=== PATIENT | female | born 1945 | race Hispanic/Latino ===

== ENCOUNTER 2020-01-08 12:26 | Observation (INO) | payer MEDICARE ==
[~2020-01-08] VITALS: Ht 162.6 cm; Wt 52.4 kg
[2020-01-08 12:51] LABS: BASOPHILS % (AUTO) 0.2 % (0.0-5.0); EOSINOPHILS % (AUTO) 0.3 % (0.0-8.0); HEMATOCRIT 38.1 % (36-48); LYMPHOCYTES % (AUTO) 35.1 % (21.0-51.0); MEAN CORPUSCULAR HEMOGLOBIN 30.8 pg (27.0-33.0); MEAN CORPUSCULAR HGB CONC 33.3 g/dL (32.0-36.0); MEAN CORPUSCULAR VOLUME 92.3 fL (79-99); MONOCYTES % (AUTO) 6.8 % (3.0-13.0); NEUTROPHILS % (AUTO) 57.2 % (40.0-77.0); PLATELET COUNT (AUTO) 300 K/uL (130-400); RED BLOOD CELL COUNT(AUTO) 4.13 MIL/uL (4.00-5.50); RED CELL DISTRIBUTION WIDTH 13.3 % (11.0-15.5); WHITE BLOOD COUNT (AUTO) 9.7 K/uL (4.8-10.8)
[2020-01-08 13:07] LABS: CREATININE 0.9 mg/dL (0.5-1.5); POTASSIUM 3.8 mmol/L (3.5-5.1)
[2020-01-08 13:11] LABS: INR 0.94 (0.85-1.15); PARTIAL THROMBOPLASTIN TIME 24.5 SEC (26.3-35.5); PROTHROMBIN TIME 10.2 SEC (9.6-11.6)
[2020-01-08 13:12] LABS: ALBUMIN 3.6 g/dL (3.5-5.0); BILIRUBIN,TOTAL 0.2 mg/dL (0.2-1.0)
[2020-01-08 13:13] LABS: B-TYPE NATRIURETIC PEPTIDE 28 pg/mL (0-100)
[2020-01-08 13:27] LABS: APPEARANCE,URINE Clear (CLEAR); BILIRUBIN,URINE Negative (NEGATIVE); COLOR,URINE Yellow (YELLOW); GLUCOSE, URINE (UA) Negative (NEGATIVE); KETONES,URINE Negative (NEGATIVE); LEUKOCYTE ESTERASE ,URINE Negative (NEGATIVE); NITRATE,URINE Negative (NEGATIVE); OCCULT BLOOD,URINE Negative (NEGATIVE); PH,URINE 5.5 (5.0-8.0); PROTEIN,URINE Negative (NEGATIVE); UROBILINOGEN,URINE 0.2 mg/dL (0.2-1.0)
[2020-01-08] MEDS ORDERED: TETANUS/DIPHTHERIA TOXOID [ADULT] 0.5 ML VIAL IM ONE (14:42)
[2020-01-08] MEDS ORDERED: ACETAMINOPHEN 325 MG TAB ONE ×2 (14:52→20:21)
[2020-01-08] MEDS ORDERED: HYDRALAZINE HCL 20 MG/ML VIAL IV PRN (17:00)
[2020-01-08] MEDS ORDERED: ACETAMINOPHEN 325 MG TAB PO PRN (17:00)
[2020-01-08] MEDS: PHENYTOIN 100 MG/4 ML UDCUP PO SCH (21:00)
[2020-01-08] MEDS: QUETIAPINE FUMARATE 100 MG TAB PO SCH (21:00)
[2020-01-08] MEDS: INSULIN HUMULIN R 100 UNIT/ML 3ML SQ SCH (21:00)
[2020-01-08] MEDS: HEPARIN SODIUM 5000UNIT/ML 1ML VIAL SQ SCH (21:00)
[2020-01-08] MEDS ORDERED: HEPARIN SODIUM 5000UNIT/ML 1ML VIAL ONE (21:32)
[2020-01-08 22:25] VITALS: BP 155/89
[2020-01-08] MEDS ORDERED: ATOR10TA69 PO (22:52)
[2020-01-08] MEDS ORDERED: PHEN100C9 PO (22:52)
[2020-01-08] MEDS ORDERED: FOLI0.8C PO (22:52)
[2020-01-08] MEDS ORDERED: QUET100T33 PO (22:52)
[2020-01-08] MEDS ORDERED: DONE5TAB33 PO (22:52)
[2020-01-08] MEDS ORDERED: DULO30CA52 PO (22:52)
[2020-01-08] MEDS ORDERED: IBUP-2077 PO (22:52)
[2020-01-08] MEDS ORDERED: METF-444 PO (22:52)
[2020-01-08 23:49] VITALS: BP 128/68
[2020-01-09 04:11] VITALS: BP 124/77
[2020-01-09] MEDS: INSULIN HUMULIN R 100 UNIT/ML 3ML SQ SCH ×4 (05:56→20:47)
[2020-01-09 06:25] LABS: BASOPHILS % (AUTO) 0.3 % (0.0-5.0); EOSINOPHILS % (AUTO) 0.7 % (0.0-8.0); HEMATOCRIT 34.2 % (36-48); LYMPHOCYTES % (AUTO) 36.5 % (21.0-51.0); MEAN CORPUSCULAR HEMOGLOBIN 31.1 pg (27.0-33.0); MEAN CORPUSCULAR HGB CONC 33.6 g/dL (32.0-36.0); MEAN CORPUSCULAR VOLUME 92.4 fL (79-99); MONOCYTES % (AUTO) 9.4 % (3.0-13.0); NEUTROPHILS % (AUTO) 52.7 % (40.0-77.0); PLATELET COUNT (AUTO) 271 K/uL (130-400); RED CELL DISTRIBUTION WIDTH 13.3 % (11.0-15.5); WHITE BLOOD COUNT (AUTO) 7.7 K/uL (4.8-10.8)
[2020-01-09 06:41] LABS: CREATININE 0.9 mg/dL (0.5-1.5); MAGNESIUM 2.1 mg/dL (1.80-2.40); POTASSIUM 4.4 mmol/L (3.5-5.1)
[2020-01-09 08:11] VITALS: BP 137/74
[2020-01-09] MEDS: PHENYTOIN 100 MG/4 ML UDCUP PO SCH ×3 (09:51→20:07)
[2020-01-09] MEDS: HEPARIN SODIUM 5000UNIT/ML 1ML VIAL SQ SCH ×3 (09:52→20:46)
[2020-01-09] MEDS: DULOXETINE HCL 30 MG CAP PO SCH (09:52)
[2020-01-09 11:20] VITALS: BP 136/80
[2020-01-09 16:15] VITALS: BP 125/78
--- NOTE | 2020-01-09 18:17 | NUR ---
D/C PLAN CM spoke to pt regarding d/c planning. Pt lives alone. Has a provider 4 hrs/day that assists in care. Pt with hx of falls. States she does not attend adult day care and not interested in services. Pt denies having home health and states she has not had o/p PT in the past. CM offered short term SNF as possible d/c option. Pt is agreeable to plan. States she will discuss with daughter and follow up as to which facility. Pt reports she has a walker at home. Possible alternate plan will be to home with o/p PT/PT. CM to f/u. Addendum: 01/09/20 at 1820 by HAZEL LESTER Amended: Links added.
[2020-01-09 20:00] VITALS: BP 151/99
--- NOTE | 2020-01-09 20:00 | NUR ---
assessment note patient awake, alert, ox3, no sob, no c/o pain at this time, no seizure activity noted, on fall precautions, teach patient plan of care and expected outcome, reinforce to call nurse when needed, patient verbalizes understanding via teach back, call lo at reach
[2020-01-09] MEDS: QUETIAPINE FUMARATE 100 MG TAB PO SCH (20:07)
[2020-01-10] VITALS: BP 126/80
[2020-01-10 03:48] VITALS: BP 100/60
[2020-01-10] MEDS: INSULIN HUMULIN R 100 UNIT/ML 3ML SQ SCH ×4 (06:04→20:53)
[2020-01-10 06:20] LABS: BASOPHILS % (AUTO) 0.2 % (0.0-5.0); EOSINOPHILS % (AUTO) 0.7 % (0.0-8.0); HEMATOCRIT 35.6 % (36-48); LYMPHOCYTES % (AUTO) 35.4 % (21.0-51.0); MEAN CORPUSCULAR HEMOGLOBIN 30.5 pg (27.0-33.0); MEAN CORPUSCULAR HGB CONC 33.1 g/dL (32.0-36.0); MONOCYTES % (AUTO) 7.7 % (3.0-13.0); NEUTROPHILS % (AUTO) 55.6 % (40.0-77.0); PLATELET COUNT (AUTO) 271 K/uL (130-400); RED BLOOD CELL COUNT(AUTO) 3.87 MIL/uL (4.00-5.50); RED CELL DISTRIBUTION WIDTH 13.2 % (11.0-15.5); WHITE BLOOD COUNT (AUTO) 8.2 K/uL (4.8-10.8)
[2020-01-10 06:33] LABS: ALBUMIN 3.1 g/dL (3.5-5.0); BILIRUBIN,TOTAL 0.2 mg/dL (0.2-1.0); CREATININE 0.9 mg/dL (0.5-1.5); PHENYTOIN (DILANTIN) 3.4 mcg/mL (10.0-20.0); POTASSIUM 4.3 mmol/L (3.5-5.1); TOTAL PROTEIN, SERUM 7.2 g/dL (6.0-8.3)
[2020-01-10 08:36] VITALS: BP 142/79
[2020-01-10] MEDS: DULOXETINE HCL 30 MG CAP PO SCH (08:44)
[2020-01-10] MEDS: PHENYTOIN 100 MG/4 ML UDCUP PO SCH ×3 (08:44→20:51)
[2020-01-10] MEDS: HEPARIN SODIUM 5000UNIT/ML 1ML VIAL SQ SCH ×3 (08:48→20:52)
[2020-01-10 14:20] VITALS: BP 126/66
[2020-01-10 16:53] VITALS: BP 139/76
[2020-01-10 20:34] VITALS: BP 136/100
[2020-01-10] MEDS: QUETIAPINE FUMARATE 100 MG TAB PO SCH (20:51)
[2020-01-11 03:56] VITALS: BP 121/57
[2020-01-11] MEDS: INSULIN HUMULIN R 100 UNIT/ML 3ML SQ SCH ×3 (05:42→16:30)
[2020-01-11 05:47] LABS: BASOPHILS % (AUTO) 0.2 % (0.0-5.0); EOSINOPHILS % (AUTO) 0.7 % (0.0-8.0); HEMATOCRIT 36.7 % (36-48); LYMPHOCYTES % (AUTO) 36.4 % (21.0-51.0); MEAN CORPUSCULAR HEMOGLOBIN 30.5 pg (27.0-33.0); MEAN CORPUSCULAR HGB CONC 33.2 g/dL (32.0-36.0); MEAN CORPUSCULAR VOLUME 91.8 fL (79-99); MONOCYTES % (AUTO) 8.3 % (3.0-13.0); NEUTROPHILS % (AUTO) 54.1 % (40.0-77.0); PLATELET COUNT (AUTO) 294 K/uL (130-400); RED CELL DISTRIBUTION WIDTH 13.1 % (11.0-15.5); WHITE BLOOD COUNT (AUTO) 8.8 K/uL (4.8-10.8)
[2020-01-11 06:13] LABS: ALBUMIN 3.1 g/dL (3.5-5.0); BILIRUBIN,TOTAL 0.2 mg/dL (0.2-1.0); CREATININE 0.9 mg/dL (0.5-1.5); POTASSIUM 4.4 mmol/L (3.5-5.1); TOTAL PROTEIN, SERUM 7.3 g/dL (6.0-8.3)
[2020-01-11 08:40] VITALS: BP 148/73
[2020-01-11] MEDS: DULOXETINE HCL 30 MG CAP PO SCH (09:05)
[2020-01-11] MEDS: PHENYTOIN 100 MG/4 ML UDCUP PO SCH ×2 (09:05→14:14)
[2020-01-11] MEDS: HEPARIN SODIUM 5000UNIT/ML 1ML VIAL SQ SCH ×2 (09:07→14:18)
[2020-01-11 11:36] VITALS: BP 130/88
[2020-01-11] MEDS ORDERED: PHEN100C9 PO (15:05)
[2020-01-11] MEDS ORDERED: IOHEXOL-350 50ML VIAL IV ONE (15:32)
[2020-01-11 16:17] VITALS: BP 162/86
--- NOTE | 2020-01-11 17:06 | NUR ---
pt has completed ct brain and i have called the results to dr rodríguez; he stated ok to d/c home from his standpoint; dr tesfaye has already entered order that ok to d/c home is ct head wnl for patient. i have instructed pt of this and will start on pts' d/c paperwork; i have spoken to pt's daughter on the phone and she is aware pt is going to be d/c.
--- NOTE | 2020-01-11 17:45 | NUR ---
pt stated understanding of all d/c instructions; iv access removed and telebox removed; i have informed pt and her daughter of need to take prescription of dilantin 3x a day w/ compliance and that a refill for it has been sent to her pharmacy.
== END 2020-01-11 17:47 | disposition home or self-care (01) ==
LOC: EDH 12:26 → EDHIP 17:00 → 3AH 20:28
PROVIDERS: ADMIT Internal Medicine; ATTEND Internal Medicine
DX: S09.8XXA Other specified injuries of head, initial encounter (principal); I44.4 Left anterior fascicular block; E11.9 Type 2 diabetes mellitus without complications; E78.5 Hyperlipidemia, unspecified; F03.90 Unspecified dementia, unspecified severity, without behavioral disturbance, psychotic disturbance, mood disturbance, and anxiety; I10 Essential (primary) hypertension; I25.10 Atherosclerotic heart disease of native coronary artery without angina pectoris; G40.909 Epilepsy, unspecified, not intractable, without status epilepticus; F41.9 Anxiety disorder, unspecified; F32.9 Major depressive disorder, single episode, unspecified; R42 Dizziness and giddiness; Z91.19 Patient's noncompliance with other medical treatment and regimen; W18.30XA Fall on same level, unspecified, initial encounter; Y93.89 Activity, other specified; Y92.89 Other specified places as the place of occurrence of the external cause; Y99.8 Other external cause status
CPT/HCPCS: 36415 ×4; 70450; 70470; 71045; 72125; 80048; 80053 ×3; 80185; 81003; 82550; 82948 ×12; 83735; 83880; 84484; 85025 ×4; 85610; 85730; 90471; 90714; 93005; 93306; 93880; 96372 ×4; 99285; G0378 ×8; J1644 ×9; J1815 ×4; Q9967